=== PATIENT | female | born 2000 | race African-American/Black ===

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

== ENCOUNTER 2021-07-26 01:53 | Emergency (ER) | payer OTHER, SELFPAY ==
[2021-07-26 02:00] VITALS: BP 110/81; PULSE 99; RESP 18; TEMP 36.9; O2SAT 100
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
--- NOTE | 2021-07-26 02:00 | PC.NURSE ---
BRIAN called at this time and urgent voicemail was left on machine [phone]
--- NOTE | 2021-07-26 02:29 | PC.NURSE ---
ZAHRAA CALLED AGAIN. NURSE WILL BE NOTIFIED. MD REYES WOULD LIKE TO SPEAK TO ZAHRAA NURSE PRIOR TO ARRIVAL. NURSE CALLS ED AT 0232 AND SPEAKS WITH MD REYES
[2021-07-26 06:10] VITALS: BP 101/75; PULSE 83; RESP 18; O2SAT 100
== END 2021-07-26 06:12 | disposition home or self-care (01) ==
LOC: ANHED 05:54
PROVIDERS: Emergency Provider Emergency Medicine
DX: T74.21XA Adult sexual abuse, confirmed, initial encounter (principal); Y07.59 Other non-family member, perpetrator of maltreatment and neglect
CPT/HCPCS: 99285

== ENCOUNTER 2021-08-25 16:25 | Emergency (ER) | payer OTHER, SELFPAY ==
[2021-08-25 16:33] VITALS: BP 115/62; PULSE 94; RESP 18; TEMP 36.2; O2SAT 100
--- NOTE | 2021-08-25 17:04 | ED.GENADULT ---
HPI - General Adult General Chief complaint: GI Bleed Stated complaint: Rectal bleeding Time Seen by Provider: 08/25/21 16:37 History of Present Illness HPI narrative: 20-year-old female but identifies as male presenting to the emergency department for evaluation of bright red blood per rectum. Patient states he has had this issue previously as approximately 1 month ago. Patient states just prior to arrival he was passing a solid bowel movement when he noticed that the toilet bowl had blood in it. Patient denied any pain while passing stool. Patient denies any associated abdominal pain. Patient describes only passing blood with stool. Patient denies passing any blood without stool. Patient does have history of anemia due to heavy menstrual cycles. Related Data Allergies Allergy/AdvReac Type Severity Reaction Status Date / Time amoxicillin Allergy Rash Verified 12/14/20 22:30 Review of Systems Review of Systems: CONSTITUTIONAL: Denies fever, chills, or sweats. EYES: Denies visual changes, redness, or discharge. ENT: Denies rhinorrhea, congestion, sore throat, or otalgia. CARDIOVASCULAR: Denies chest pain, palpitations, or edema. RESPIRATORY: Denies cough or dyspnea. GASTROINTESTINAL: See HPI GENITOURINARY: Denies dysuria or hematuria. SKIN: Denies rash or itching. MUSCULOSKELETAL: Denies back pain, joint pain, or myalgia. NEUROLOGIC: Denies headache, numbness, or weakness. [facility] Past Medical History Medical History (Updated 08/26/21 @ 00:00 by Karen Soto) Healthy female adult Surgical History Surgical History (Updated 12/15/20 @ 00:07 by Yariel Rodriguez MD) No history of previous surgery Social History Social History Smoking status: Never smoker Exam Narrative: APPEARANCE: Well appearing, no pain, no distress, well-nourished. HEAD: normocephalic, atraumatic. NECK: Supple. No adenopathy, no masses. RESPIRATORY: Airway patent, respirations nonlabored. Clear to auscultation bilaterally, no rales, rhonchi, wheezing. CARDIOVASCULAR: Regular rate and rhythm without murmurs rubs or gallops. ABDOMINAL: Soft, nontender, nondistended, normal bowel sounds. No external hemorrhoids visualized No internal hemorrhoids palpated No tenderness to BRENNA, no fissures identified. Trace Hemoccult positive MUSCULOSKELETAL: Moves all extremities. Strength/ROM intact, No edema, No calf tenderness. NEURO: Alert. Cranial nerves II through XII intact. Grossly intact SKIN: Warm, dry. Normal Color Course Course Emergency Course: Patient has a normal hemoglobin. Normal platelets. Normal INR. Patient was updated on the results of his labs and the plan for MiraLAX and close follow-up with the primary care physician and with GI. All questions and concerns were addressed. Patient was comfortable with the plan for discharge and follow-up. Vital Signs Vital signs: Vital Signs Temperature 97.1 F L 08/25/21 16:33 Pulse Rate 94 08/25/21 16:33 Respiratory Rate 18 08/25/21 16:33 Blood Pressure 115/62 08/25/21 16:33 Pulse Oximetry 100 08/25/21 16:33 Oxygen Delivery Room Air 08/25/21 16:33 Temperature 97.1 F L 08/25/21 16:33 Pulse Rate 94 08/25/21 16:33 Respiratory Rate 18 08/25/21 16:33 Blood Pressure 115/62 08/25/21 16:33 Pulse Oximetry 100 08/25/21 16:33 Oxygen Delivery Room Air 08/25/21 16:33 Medical Decision Making Vital Signs Vital Signs: Vital Signs Temperature 97.1 F L 08/25/21 16:33 Pulse Rate 94 08/25/21 16:33 Respiratory Rate 18 08/25/21 16:33 Blood Pressure 115/62 08/25/21 16:33 Pulse Oximetry 100 08/25/21 16:33 Oxygen Delivery Room Air 08/25/21 16:33 Temperature 97.1 F L 08/25/21 16:33 Pulse Rate 94 08/25/21 16:33 Respiratory Rate 18 08/25/21 16:33 Blood Pressure 115/62 08/25/21 16:33 Pulse Oximetry 100 08/25/21 16:33 Oxygen Delivery Room Air 08/25/21 16:33
[2021-08-25 17:28] LABS: Basophils Percent Auto 0.6 % (0.2-1.2); Eosinophils Percent Auto 0.6 % (0-4.4); Hematocrit 35.1 % (37.0-47.0); Hemoglobin 11.1 g/dL (12.0-15.0); Immature Granulocyte Absolute 0.01 K/mm3 (0.00-0.031); Immature Granulocyte Percent A 0.2 % (0-0.5); Lymphocytes Percent Auto 27.4 % (18.3-44.2); Mean Corpuscular HGB Conc 31.6 g/dl (32-36); Mean Corpuscular Hemoglobin 28.5 pg (26-34); Mean Corpuscular Volume 90.2 fl (80-100); Mean Platelet Volume 9.8 fl (7.4-10.4); Monocytes Absolute Auto 0.5 K/mm3 (0.1-0.6); Monocytes Percent Auto 8.4 % (2.6-8.5); Neutrophils Absolute Auto 3.9 K/mm3 (1.3-6.7); Neutrophils Percent Auto 62.8 % (45.5-73.1); Platelet Count Result 333 k/mm3 (150-375); Red Blood Count 3.89 M/mm3 (4.2-5.4); Red Cell Distribution Width 14.6 % (11.5-14.5); White Blood Count 6.2 K/mm3 (4.5-10.0)
[2021-08-25 17:38] LABS: Alanine Aminotransferase 10 U/L (6-35); Albumin Level 4.6 g/dL (3.7-5.6); Alkaline Phosphatase 68 U/L (45-116); Anion Gap 4 mmol/L (8-16); Aspartate Amino Transferase 24 U/L (14-36); Bilirubin,Total 0.4 mg/dL (0.2-1.3); Blood Urea Nitrogen 10 mg/dL (8-21); Carbon Dioxide 28 mmol/L (22-30); Chloride 106 mmol/L (98-107); Estimated CRCL calculation 106 ml/min; Estimated Glomerular Filt Rate > 60; Glucose 87 mg/dL (65-110); Potassium 3.7 mmol/L (3.4-5.0); Sodium 138 mmol/L (134-143)
[2021-08-25 17:39] LABS: INR 1.2; Prothrombin Time 14.4 Seconds (11.1-14.7)
[2021-08-25 17:40] LABS: Partial Thromboplastin Time 30.5 SECONDS (22.3-36.8)
== END 2021-08-25 17:59 | disposition home or self-care (01) ==
PROVIDERS: Emergency Provider Emergency Medicine; PCP Family Medicine
DX: K62.5 Hemorrhage of anus and rectum (principal); Z86.2 Personal history of diseases of the blood and blood-forming organs and certain disorders involving the immune mechanism
CPT/HCPCS: 36415; 80053; 85025; 85610; 85730; 99283

== ENCOUNTER 2022-07-14 17:40 | Emergency (ER) | payer OTHER, SELFPAY ==
--- NOTE | 2022-07-14 17:45 | ED.NAVMDI ---
HPI - Nausea/Vomiting/Diarrhea General Chief complaint: Nausea/Vomiting/Diarrhea Stated complaint: vomiting Time Seen by Provider: 07/14/22 17:45 Source: patient Mode of arrival: ambulatory Limitations: no limitations History of Present Illness HPI Narrative: patient is a 23-year-old that presents with nausea vomiting since Friday after taking a 5 mg edible of marijuana. patient has been drinking water and Gatorade but states they are unable to keep it down. Reports 10 episodes of vomiting between noon and 3:00 p.m. today. States they are still making urine normally. Denies any fever, chills, abdominal pain, diarrhea. denies any blood in emesis. MD elicited complaint: vomiting Related Data Home Medications Medication Instructions Recorded Confirmed testosterone cypionate 200 mg/mL 200 mg IM WEEKLY 07/14/22 07/14/22 intramuscular oil Allergies Allergy/AdvReac Type Severity Reaction Status Date / Time amoxicillin Allergy Rash Verified 07/14/22 17:50 Review of Systems Review of Systems: All systems reviewed & are unremarkable except as noted in HPI and below Constitutional: Constitutional: Denies body ache(s), Denies chills, Denies fatigue, Denies fever(s), Denies headache(s), Denies malaise and Denies weakness Eyes: Eyes: Denies blurry vision, Denies irritation and Denies loss of vision ENT: Denies otalgia, Denies headache(s), Denies nasal discharge, Denies sinus pain and Denies sore throat Cardiovascular: Cardiovascular: Denies chest pain, Denies irregular heart rhythm and Denies dyspnea Respiratory: Respiratory: Denies dyspnea Gastrointestinal: Gastrointestinal: Denies abdominal pain, Denies melena, Denies hematochezia, Denies diarrhea, Denies nausea and Reports vomiting Musculoskeletal: Musculoskeletal: Denies back pain, Denies myalgias and Denies arthralgias Integumentary/Breasts: Skin/Breast: Denies pruritus and Denies rash Neurologic: Denies headache(s), Denies loss of vision and Denies weakness Psychiatric: Psychiatric: Reports no additional psychiatric complaints Endocrine: Endocrine: Denies fatigue PMF Past Medical History Medical History (Updated 07/14/22 @ 17:58 by Shelbie Brambila APRN) Healthy female adult Surgical History Surgical History (Updated 12/15/20 @ 00:07 by Yariel Rodriguez MD) No history of previous surgery Social History Social History Smoking status: Never smoker Comments At time of signature, agree with nursing past medical, surgical, social and family history. There is no relevant family history pertinent to the presenting complaint. Exam Const: General: cooperative, healthy appearing, comfortable, no acute distress and well nourished Nutritional Appearance: well nourished Orientation/consciousness: patient oriented x3 Limitations: no limitations HENMT: Head: normal to inspection, normocephalic and atraumatic Ears: hearing grossly normal bilaterally and external ears normal Face/Nose/Sinus: Normal external nose present, normal facial exam and face symmetric Face and sinus: normal facial exam and face symmetric Mouth: Yes lip normal Eyes: General: appearance normal, both eyes and all related structures Alignment and Position: alignment normal and position normal Periorbital: periorbital findings normal Eyelids: eyelids normal Pupils: Equal, round and reactive pupils present EOM: EOMs intact bilaterally Neck: Neck: normal visual inspection, full ROM and supple Chest: Chest palpation & inspection: normal inspection of the chest Resp: Effort & Inspection: normal respiratory effort and able to speak in complete sentences Auscultation: clear to auscultation bilaterally Cardio: Rate: regular rate Rhythm: regular rhythm Heart sounds: S1 normal heart sound present and S2 normal heart sound present GI: Inspection: normal to inspection and non-distended GI Palp: No abdominal tenderness, Yes Soft
[2022-07-14 17:50] VITALS: BP 118/79; PULSE 95; RESP 16; TEMP 36.5; O2SAT 100
[2022-07-14] MEDS: ONDANSETRON HCL ODT 4 MG TABLET SUBLINGUAL (18:03)
== END 2022-07-14 18:05 | disposition home or self-care (01) ==
PROVIDERS: Emergency Provider Nurse Practitioner Family; PCP Family Medicine
DX: R11.10 Vomiting, unspecified (principal)
CPT/HCPCS: 99213; A9270; G0463

== ENCOUNTER 2022-12-03 20:40 | Emergency (ER) | payer OTHER, SELFPAY ==
--- NOTE | ~2022-12-03 | XR_ITS ---
EXAM: XR finger 3rd LT min 2V DATE: 12/03/2022 22:05 HISTORY: lac, r/o fb/fx; cut Lt 3rd finger with knife this P.M. . COMPARISON: None available. FINDINGS: Normal mineralization. No fracture or dislocation. No lytic or blastic lesion. Joint space s are maintained. No erosion or periosteal change. Soft tissues within normal limits. IMPRESSION: No acute osseous finding in the left third finger. No radiopaque foreign body. Reviewed, dictated and finalized at location K. IMPRESSION: No acute osseous finding in the left third finger. No radiopaque fo reign body.
[2022-12-03 20:41] VITALS: BP 102/56; PULSE 79; RESP 15; TEMP 36.1; O2SAT 100
--- NOTE | 2022-12-03 23:37 | ED.WOUNDLAC ---
HPI - Wound/Laceration General Chief Complaint: Wound/Laceration Stated Complaint: laceration to finger Time Seen by Provider: 12/03/22 21:48 Source: patient Mode of arrival: ambulatory Limitations: no limitations History of Present Illness HPI narrative: Patient is a 21-year-old female who presents to the ED with a laceration to her left third digit. Patient reports she was using a putty knife for an art project when the knife slipped and she cut her left third digit. The knife was serrated. Patient then presented here. Tetanus up-to-date. No numbness or tingling. No other injuries. Related Data Home Medications Medication Instructions Recorded Confirmed testosterone cypionate 200 mg/mL 200 mg IM WEEKLY 07/14/22 07/14/22 intramuscular oil Allergies Allergy/AdvReac Type Severity Reaction Status Date / Time amoxicillin Allergy Rash Verified 07/14/22 17:50 Review of Systems Review of Systems: CONSTITUTIONAL: Denies fever, chills, or sweats. SKIN: See HPI. MUSCULOSKELETAL: See HPI. NEUROLOGIC: Denies tingling, numbness, or weakness. All systems reviewed & are unremarkable except as noted in HPI and below PMFSH Past Medical History Medical History Healthy female adult Surgical History Surgical History No history of previous surgery Social History Social History Smoking status: Never smoker Exam Narrative: GENERAL: Well appearing, well-nourished, non-toxic, in no acute distress. HEAD: Normocephalic, atraumatic. NECK: Supple. No adenopathy, no masses. RESPIRATORY: Airway patent, respirations nonlabored. CARDIOVASCULAR: Regular rate and rhythm without murmurs, rubs, or gallops. Radial pulses 2+ and equal bilaterally. MUSCULOSKELETAL: Moves all extremities. Strength/ROM intact without gross deformities. SKIN: Warm, dry, normal color. No rashes. Small 1.5 cm linear laceration to the left third digit on extensor surface between PIP and DIP joints. No active bleeding. Sensation intact. NEURO: A&O X3. Speech clear. Cranial nerves II-XII grossly intact. Steady gait. No ataxic movements. PSYCHIATRIC: Appropriate mood and affect. Normal interaction. Course Vital Signs Vital signs: Vital Signs Temperature 97.0 F L 12/03/22 20:41 Pulse Rate 79 12/03/22 20:41 Respiratory Rate 15 12/03/22 20:41 Blood Pressure 102/56 L 12/03/22 20:41 Pulse Oximetry 100 12/03/22 20:41 Oxygen Delivery Room Air 12/03/22 20:41 Temperature 97.0 F L 12/03/22 20:41 Pulse Rate 79 12/03/22 20:41 Respiratory Rate 15 12/03/22 20:41 Blood Pressure 102/56 L 12/03/22 20:41 Pulse Oximetry 100 12/03/22 20:41 Oxygen Delivery Room Air 12/03/22 20:41 Procedures Laceration Laceration 1: Date: 12/03/22 Time: 23:20 Site: hand (3rd digit) Side (If applicable): left Size (cm): 1.5 Description: linear Depth: simple, single layer Local Anesthetic: lidocaine 1% Amount of anesthesia used (mL): 3 Pre-repair: wound explored and irrigated ====== Skin Level ====== Skin layer closed with: nylon Size (cm): 4-0 Number of sutures: 3 Technique: simple, interrupted ====== Subcutaneous Layer ====== ====== Muscle Layer ====== ====== Tendon Layer ====== MDM - Wound/Laceration [facility] Narrative Medical decision making narrative: X-ray without foreign body or fracture. Laceration repaired without complications. Tetanus already up-to-date. Patient given wound care instructions and reasons to return. Discharged in stable condition. Medical Records Attestation: I reviewed the patient's medical records. Imaging Data Attestation: I personally reviewed and interpreted this imaging study as follows: Radiologist'
== END 2022-12-03 23:50 | disposition home or self-care (01) ==
PROVIDERS: Emergency Provider Physician Assistant; PCP Family Medicine
DX: S61.213A Laceration without foreign body of left middle finger without damage to nail, initial encounter (principal); W26.0XXA Contact with knife, initial encounter
CPT/HCPCS: 12001; 73140; 99283